=== PATIENT | female | born 1955 | race Caucasian/White ===

== ENCOUNTER 2017-05-29 23:52 | Emergency (ER) | payer OTHER ==
[2017-05-29 23:56] VITALS: BP 153/73
--- NOTE | 2017-05-30 00:45 | EDPHY ---
H & P Stated Complaint: UTI LIKE SX 2 DAYS Time Seen by Provider: 05/30/17 00:21 HPI/ROS: Chief Complaint: UTI HPI: 62-year-old woman presenting with 2 days of urinary symptoms increasing including urgency and frequency which got significantly worse this evening. No fevers or chills. No back pain. No nausea or vomiting. She does have a history of urinary tract infections about 1 every year. She is a type 1 diabetic on insulin pump. Last A1c was 7.0. ROS: 10 point Review of Systems is negative except as noted in the HPI. PMH: Type 1 diabetes, hypo thyroidism Medications: Insulin, Synthroid, Lipitor Allergies: No known drug allergies Social History: No smoking, no alcohol, no recreational drug use Family History: non-contributory Physical Exam: Gen: Awake, Alert, No Distress HEENT: Nose: no rhinorrhea Eyes: PERRLA, EOMI Mouth: Moist mucosa Neck: Supple, no JVD Chest: nontender, lungs clear to auscultation Heart: S1, S2 normal, no murmur Abd: Soft, non-tender, no guarding Back: no CVA tenderness, no midline tenderness Ext: no edema, non-tender Skin: no rash Neuro: CN II-XII intact, Sensation grossly intact, Strength 5/5 in bilateral upper and lower extremities - Personal History Current Tetanus/Diphtheria Vaccine: Yes Current Tetanus Diphtheria and Acellular Pertussis (TDAP): Yes - Medical/Surgical History Hx Asthma: No Hx Chronic Respiratory Disease: No Hx Diabetes: Yes Hx Cardiac Disease: No Hx Renal Disease: No Hx Cirrhosis: No Hx Alcoholism: No Hx HIV/AIDS: No Hx Splenectomy or Spleen Trauma: No Other PMH: D.M. HYPOTHYRIOD , HTN. HIGH CHOLESTEROL - Social History Smoking Status: Never smoked Constitutional: Initial Vital Signs Temperature (C) 36.7 C 05/29/17 23:53 Heart Rate 92 05/29/17 23:53 Respiratory Rate 18 05/29/17 23:53 Blood Pressure 153/73 H 05/29/17 23:53 O2 Sat (%) 95 05/29/17 23:53 O2 Delivery Mode Room Air Allergies/Adverse Reactions: No Known Allergies Allergy (Unverified 05/29/17 23:56) Home Medications: Medication Instructions Recorded Atorvastatin Calcium [Lipitor 10 04/24/13 mg (RX)] Insulin 04/24/13 Levothyroxine [Synthroid 175 mcg 175 mcg PO DAILY06 04/24/13 (RX)] Lisinopril 04/24/13 Nitrofurantoin Monohyd/M-Cryst 100 mg PO BID #10 capsule 05/30/17 [Macrobid 100 mg Capsule] Phenazopyridine HCl [Pyridium] 200 mg PO TID #6 tab 05/30/17 Medical Decision Making - Data Points Laboratory Results: 05/30/17 01:30 Urine Color DARK YELLOW Urine Appearance CLOUDY Urine pH 5.0 (5.0-7.5) Ur Specific [place] >= 1.030 (1.002-1.030) Urine Protein 3+ H (NEGATIVE) Urine Ketones 1+ H (NEGATIVE) Urine Blood 3+ H (NEGATIVE) Urine Nitrate POSITIVE H (NEGATIVE) Urine Bilirubin NEGATIVE (NEGATIVE) Urine Urobilinogen 1.0 EU EU (0.2-1.0) Ur Leukocyte Esterase 2+ H (NEGATIVE) Urine RBC 50-182 /hpf H /hpf (0-3) Urine WBC 50-182 /hpf H /hpf (0-3) Ur Epithelial Cells TRACE /lpf /lpf (NONE-1+) Urine Bacteria 3+ /hpf H /hpf (NONE SEEN) Urine Mucus 4+ /lpf H /lpf (NONE-1+) Urine Glucose NEGATIVE (NEGATIVE) Medications Given: Discontinued Medications Nitrofurantoin (Macrobid 100mg Prepack#2) 1 btl TAKEHOME EDNOW ONE PRN Reason: Protocol Stop: 05/30/17 02:14 Last Admin: 05/30/17 02:20 Dose: 1 btl Phenazopyridine HCl (Pyridium) 200 mg PO EDNOW ONE Stop: 05/30/17 02:14 Last Admin: 05/30/17 02:18 Dose: 200 mg Departure - Departure Disposition: Home, Routine, Self-Care Clinical Impression: Urinary tract infection Condition: Good Instructions: Phenazopyridine (By mouth), Nitrofurantoin Combination (By mouth) , Urinary Tract Infection in Women (ED) Additional Instructions: Follow up with primary care physician in 3-4 days for re-evaluation. Referrals: Monique Nguyen MD [Primary Care Provider] - As per Instructions Prescriptions: Nitrofurantoin Monohyd/M-Cryst [Macrobid 100 mg Capsule] 100 mg PO BID #10 capsule Phenazopyridine HCl [Pyridium] 200 mg PO TID #6 tab
[2017-05-30 01:54] LABS: LEUKOCYTE ESTERASE,URINE 2+ (NEGATIVE); NITRITE,URINE POSITIVE (NEGATIVE)
[2017-05-30 01:55] LABS: COLOR DARK YELLOW
[2017-05-30 02:05] LABS: BACTERIA 3+ /hpf (NONE SEEN); MUCUS 4+ /lpf (NONE-1+); RBC,URINE 50-182 /hpf (0-3); WBC,URINE 50-182 /hpf (0-3)
[2017-05-30] MEDS ORDERED: NITROFURANTOIN 100MG PREPACK#2 BTL TAKEHOME ONE (02:13)
[2017-05-30] MEDS ORDERED: PHENAZOPYRIDINE HCL 200 MG TAB PO ONE (02:13)
[2017-05-30 02:25] VITALS: PULSE 66; RESP 16; TEMP 97.5; O2SAT 96
== END 2017-05-30 02:25 | disposition home or self-care (01) ==
DX: N39.0 Urinary tract infection, site not specified (principal); B96.89 Other specified bacterial agents as the cause of diseases classified elsewhere; E10.9 Type 1 diabetes mellitus without complications; I10 Essential (primary) hypertension

== ENCOUNTER → 2017-06-07 | Outpatient (CLI) | payer OTHER | LOC: FIMAGING 07:54 | PROVIDERS: ATTEND Internal Medicine | DX: Z12.31 Encounter for screening mammogram for malignant neoplasm of breast (principal) | CPT/HCPCS: G0202 ==

== ENCOUNTER → 2017-06-24 | Outpatient (CLI) | payer OTHER | LOC: FIMAGING 11:03 | PROVIDERS: ATTEND Internal Medicine | DX: Z13.820 Encounter for screening for osteoporosis (principal); M85.80 Other specified disorders of bone density and structure, unspecified site; E11.9 Type 2 diabetes mellitus without complications ==

== ENCOUNTER 2017-10-17 08:53 | Day surgery (SDC) | payer OTHER ==
[2017-10-17] MEDS ORDERED: LR 1,000 ML IV ONE (09:08)
[2017-10-17 09:33] VITALS: PULSE 73
--- NOTE | 2017-10-17 09:44 | PDHPUP ---
History & Physical Update H&P update statement: This history and physical update is based on an assessment of the patient which was completed after admission or registration (within 24 hours), but prior to the surgery/procedure.
[2017-10-17] MEDS ORDERED: MIDAZOLAM 2 MG/2 ML VIAL IVP ONE (09:48)
--- NOTE | 2017-10-17 09:48 | PDANEPAE ---
ANE History of Present Illness HERE FOR hand duputrens contracture release ANE Past Medical History - Cardiovascular History Hx Hypertension: Yes Hx Arrhythmias: No Hx Chest Pain: No Hx Coronary Artery / Peripheral Vascular Disease: No Hx CHF / Valvular Disease: No Hx Palpitations: No Cardiovascular History Comment: PCP MONITORS BP MEDS - Pulmonary History Hx COPD: No Hx Asthma/Reactive Airway Disease: No Hx Recent Upper Respiratory Infection: No Hx Oxygen in Use at Home: No Hx Sleep Apnea: No Sleep Apnea Screening Result - Last Documented: Negative - Neurologic History Hx Cerebrovascular Accident: No Hx Seizures: No Hx Dementia: No - Endocrine History Hx Diabetes: Yes Endocrine History Comment: TYPE 1. INSULIN PUMP. 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 PELVIC SURGERY ANE Review of Systems Review of systems is: negative Review of Systems: - Exercise capacity Exercise capacity: >=4 METS METS (RN): 4 METS ANE Patient History - Allergies Allergies/Adverse Reactions: No Known Allergies Allergy (Verified 10/08/17 14:45) - Home Medications Home medications: home medication list seen and reviewed Home Medications: Atorvastatin Calcium [Lipitor 10 mg (RX)] 04/24/13 [Last Taken 10/16/17] Levothyroxine [Synthroid 175 mcg (RX)] 04/24/13 [Last Taken 10/16/17] Lisinopril 04/24/13 [Last Taken 10/16/17] Insulin Pump, Patient Own 10/08/17 [Last Taken 10/17/17] - NPO status NPO Status: no food or drink >8 hours NPO Since - Liquids (Date): 10/16/17 NPO Since - Liquids (Time): 21:00 NPO Since - Solids (Date): 10/16/17 NPO Since - Solids (Time): 20:00 - Anes Hx Anes Hx: no prior problems - Smoking Hx Smoking Status: Never smoked - Family Anes Hx Family Hx Anesthesia Complications: NONE ANE Labs/Vital Signs - Vital Signs Blood Pressure: 144/77 Heart Rate: 73 Respiratory Rate: 18 O2 Sat (%): 95 Height: 170.18 cm Weight: 83.915 kg ANE Physical Exam - Airway Neck exam: FROM Mallampati Score: Class 1 - Pulmonary Pulmonary: no respiratory distress - Cardiovascular Cardiovascular: regular rate and rhythym - ASA Status ASA Status: III ANE Anesthesia Plan Anesthesia Plan: GA w LMA
--- NOTE | 2017-10-17 09:48 | POSTOPPROG ---
Post Op Note Date of Operation: 10/17/17 Surgeon: Leopoldo Solano Anesthesia: LMA Pre-op Diagnosis: Right Dupuytrens contracture Post-op Diagnosis: same Indication: contracture of palm and fingers Procedure: Excision of Dupuytren's tissue Findings: Facial thickening Inf/Abcess present in the surg proc area at time of surgery?: No Depth: Deep Incisional (Fascial) EBL: Minimal Total fluids administered: 600
--- NOTE | 2017-10-17 09:49 | POSTOPPROG ---
Post Op Note Date of Operation: 10/17/17 Surgeon: Leopoldo Solano Anesthesiologist: Case Montoya MD
[2017-10-17] MEDS ORDERED: D50W 25 GM/50 ML SYR IVP ONE (09:53)
[2017-10-17] MEDS ORDERED: fentaNYL 100 MCG/2 ML INJ ONE (09:58)
[2017-10-17] MEDS ORDERED: PROPOFOL/EMULSION 500 MG/50 ML BOTTLE IV ONE (09:59)
[2017-10-17] MEDS ORDERED: OXYCODONE/APAP 5/325 TAB PO PRN (10:29)
[2017-10-17] MEDS ORDERED: HYDROCODONE/APAP 5/325 TAB PO PRN (10:29)
[2017-10-17] MEDS ORDERED: HYDROmorphONE/DILAUDID 1 MG/ML INJ IVP PRN (10:29)
[2017-10-17] MEDS ORDERED: NALOXONE HCL 0.4 MG/ML INJ IVP PRN (10:29)
[2017-10-17] MEDS ORDERED: fentaNYL 100 MCG/2 ML INJ IVP PRN (10:29)
[2017-10-17] MEDS ORDERED: BUPIVACAINE 0.5% 30 ML SDV ONE (10:42)
--- NOTE | 2017-10-17 11:31 | GOP ---
[f rep st] OPERATIVE REPORT DATE OF OPERATION: 10/17/2017 SURGEON: Leopolod Solano MD PREOPERATIVE DIAGNOSIS: Right ring Dupuytren's contracture and right ring trigger finger. POSTOPERATIVE DIAGNOSIS: Right ring Dupuytren's contracture and right ring trigger finger. PROCEDURE PERFORMED: FINDINGS: INDICATIONS: This patient had significant triggering action of the right ring finger secondary to en trapment of the flexor tendons at the A1 janak area and also had significant Dupuytren's contracture involving the small, ring and long fingers. It was felt that release of the contracture and also re lease of the flexor tendon sheath at the A1 janak area was a good option for her at this point. DESCRIPTION OF PROCEDURE: Under general anesthesia, the patient's right arm was prepped and draped i n the usual fashion and through an L-shaped incision at the ulnar aspect of the ring finger and 3 tra nsverse incisions, one distal to the distal flexion crease, one between proximal and distal flexion c reases and one running parallel to the thenar crease. Skin and subcutaneous tissue were elevated fro m the underlying palmar fascia and the thick bands of palmar fascia were from the skin and then from underlying tissues and excised. The pretendinous bands extended into the ring fi nger and obliquely into the long finger and those bands were excised with careful preservation of dig ital neurovascular bundles. The A2 janak was left intact. The A1 janak was excised and significan t fascial involvement of the A3 janak area required that was excised along with the diseased palmar fascia. Range of motion of the flexor tendons were tested postop and glided smoothly. All neurovasc ular structures were intact. Wounds were irrigated with body temperature saline. Skin was closed wi th horizontal mattress sutures of 5-0 Prolene. The midportion of the mid and distal palmar incisions were left open because there was tension in the skin. The wounds were dressed with Xeroform gauze, a bulky soft pressure dressing was applied followed by palmar based fiberglass splint held in place w ith an Mario bandage. She tolerated the procedure well. There were no complications. She was brought from the operating room to recovery room in good condition, given detailed postoperative instruction s prior to discharge. A prescription for [place] and Keflex was provided. She had been given 2 g of A ncef prior to commencement of surgery. Followup arrangements in the office for about a week postop f or dressing and probable suture removal and remobilization exercises with a night extension splint to be worn every night for at least a month. PROPOSED PROCEDURE: Right ring trigger finger release and right small ring long Dupuytren's excision . /[id number]/MODL
[2017-10-17 11:58] VITALS: RESP 12
[2017-10-17 13:52] VITALS: TEMP 97.7
[2017-10-17 13:54] VITALS: BP 122/62; O2SAT 94
== END 2017-10-17 13:55 | disposition home or self-care (01) ==
LOC: FSGY 08:53
PROVIDERS: ATTEND Specialist
PROC: 0JNJ0ZZ Release Right Hand Subcutaneous Tissue and Fascia, Open Approach (ICD-10-PCS; principal; 2017-10-17 10:00)
PROC: 0LN70ZZ Release Right Hand Tendon, Open Approach (ICD-10-PCS; principal; 2017-10-17 10:00)
DX: M72.0 Palmar fascial fibromatosis [Dupuytren] (principal); M65.341 Trigger finger, right ring finger; E11.9 Type 2 diabetes mellitus without complications; E07.9 Disorder of thyroid, unspecified; Z87.440 Personal history of urinary (tract) infections
CPT/HCPCS: J2250; J2704; J3010

== ENCOUNTER → 2018-07-28 | Outpatient (CLI) | payer OTHER | LOC: FIMAGING 15:42 | PROVIDERS: ATTEND Internal Medicine | DX: Z12.31 Encounter for screening mammogram for malignant neoplasm of breast (principal) ==